=== PATIENT | male | born 1975 | race African-American/Black ===

== ENCOUNTER 2024-07-17 13:01 | Emergency (ER) | payer MEDICARE, SELFPAY ==
[2024-07-17 13:06] VITALS: BP 145/79; PULSE 70; RESP 15; TEMP 36.4; O2SAT 100
[2024-07-17 13:16] VITALS: PULSE 65
--- NOTE | 2024-07-17 14:12 | ED.SEIZURE ---
HPI - Seizure General Chief Complaint: Seizure Stated Complaint: seizure Time Seen by Provider: 07/17/24 13:22 History of Present Illness HPI Narrative: 49-year-old male known seizure disorder he presents to the ER via EMS for evaluation of head injury status post witnessed seizure. A presentation to the ER, patient is alert oriented x3 and at neurological baseline. Patient states he takes Tegretol for his seizure disorder. Denies any changes to the dosing. Denies missing any dosing. Patient unable to tell provider when his last seizure was. Currently patient is refusing any further evaluation or treatme Seizure History: Yes Related Data Allergies Allergy/AdvReac Type Severity Reaction Status Date / Time No Known Allergies Allergy Verified 07/17/24 13:20 Review of Systems Review of Systems: ROS unremarkable except for noted in HPI PMFSH Family History Family History Mother Patient's mother is in good health Social History Social History Smoking status: Never smoker Second hand tobacco smoke exposure: No Alcohol intake: never Exam Narrative: GENERAL: Well-appearing, well-nourished, no physical limitations, and in no acute distress. HEAD: Normocephalic, atraumatic. EYES: Conjunctivae normal, PERRLA and EOMI. ENT: External nose normal, Nares clear, no rhinorrhea or epistaxis. Mucous membranes moist. Oropharynx without tonsillar hypertrophy exudate or other lesions. External ears normal, bilateral TMs normal bilaterally NECK: Supple. CHEST: Clear to auscultation. No respiratory distress. No wheezes rales or rhonchi. HEART: Regular rate and rhythm. No murmur heard. Normal peripheral pulses. BACK: No cervical/thoracic/lumbar tenderness, step-offs, bony abnormality; FROM EXTREMITIES: Normal range of motion. No edema. No clubbing or cyanosis SKIN: Warm, dry, no rash. No noted wounds NEURO: No focal deficits. Alert and oriented x3. MAEW. CN's II-XI intact bilaterally, normal gait PSYCH: Cooperative. Normal mood and affect. Course Vital Signs Vital signs: Vital Signs Temperature 36.4 C L 07/17/24 13:06 Pulse Rate 70 07/17/24 13:06 Respiratory Rate 15 07/17/24 13:06 Blood Pressure 145/79 H 07/17/24 13:06 Pulse Oximetry 100 07/17/24 13:06 Oxygen Delivery Room Air 07/17/24 13:06 Temperature 36.4 C L 07/17/24 13:06 Pulse Rate 65 07/17/24 13:16 Respiratory Rate 15 07/17/24 13:06 Blood Pressure 145/79 H 07/17/24 13:06 Pulse Oximetry 100 07/17/24 13:06 Oxygen Delivery Room Air 07/17/24 13:20 Discharge Plan Discharge Clinical Impression: Epileptic seizure Patient Disposition: Left Against Medical Advice Condition: Stable Follow-up/Referrals: UNKNOWN,DOCTOR [Primary Care Provider] - Time of Disposition: 14:18
== END 2024-07-17 14:44 | disposition left against medical advice (07) ==
PROVIDERS: Emergency Provider Nurse Practitioner Family
DX: G40.909 Epilepsy, unspecified, not intractable, without status epilepticus (principal)
CPT/HCPCS: 99283